=== PATIENT | female | born 1935 | race Caucasian/White ===

== ENCOUNTER 2019-06-11 17:51 | Inpatient (IN) | payer MEDICARE, OTHER ==
[~2019-06-11] VITALS: Ht 152.4 cm; Wt 60.3 kg
[2019-06-19 14:12] VITALS: BP 107/73
== END 2019-06-19 15:10 | disposition hospice, home (50) | DRG 177 ==
LOC: ED 18:44 → EDIP 19:39 → 3NE 20:42
PROVIDERS: ADMIT Family Medicine; ATTEND Family Medicine
PROC: 0T9B70Z Drainage of Bladder with Drainage Device, Via Natural or Artificial Opening (ICD-10-PCS; principal; 2019-06-11)
DX: J15.6 Pneumonia due to other Gram-negative bacteria (principal); E43 Unspecified severe protein-calorie malnutrition; N39.0 Urinary tract infection, site not specified; J98.11 Atelectasis; R64 Cachexia; E83.52 Hypercalcemia; Z66 Do not resuscitate; E87.6 Hypokalemia; F17.200 Nicotine dependence, unspecified, uncomplicated; G89.29 Other chronic pain; I50.9 Heart failure, unspecified; J43.9 Emphysema, unspecified; R62.7 Adult failure to thrive; Z51.5 Encounter for palliative care; W18.39XA Other fall on same level, initial encounter; Y93.89 Activity, other specified; I25.2 Old myocardial infarction; Z98.49 Cataract extraction status, unspecified eye; Y92.89 Other specified places as the place of occurrence of the external cause; Y99.8 Other external cause status; Z68.26 Body mass index [BMI] 26.0-26.9, adult
CPT/HCPCS: 36415; 70100; 71045; 71275; 80048; 80053; 81003; 82306; 82330; 82550; 82607; 82962; 83605; 83690; 83880; 83970; 84100; 84443; 85025; 85379; 85610; 87040; 87070; 87086; 87186; 87205; 93005; 94640; 96365; G0378; J0696; J1650; J7613; J7620; J7626; Q9967; J7030; J7040; J7512